=== PATIENT | female | born 1975 | race Two or more races ===

== ENCOUNTER 2021-09-17 21:59 | Emergency (ER) | payer MEDICAID, OTHER ==
[~2021-09-17] VITALS: Ht 167.6 cm; Wt 97.5 kg
[2021-09-17 22:50] LABS: Urine Bacteria NONE SEEN /hpf (None Seen); Urine Blood Negative /uL (Negative); Urine Specific Gravity 1.003 (1.001-1.035); Urine WBC <1 /hpf (0 - 5)
[2021-09-18] MEDS ORDERED: DOCUSATE SOD 100 MG CAP PO ONE (01:15)
[2021-09-18] MEDS ORDERED: LACTULOSE 20Gm/30ML SOLN PO ONE (01:15)
[2021-09-18] MEDS ORDERED: MAGNESIUM CITRATE SOLUTION 300 ML BTL PO ONE (01:15)
[2021-09-18 03:31] VITALS: BP 133/94
== END 2021-09-18 03:07 | disposition home or self-care (01) ==
LOC: ER 22:02
DX: K59.00 Constipation, unspecified (principal); Z32.02 Encounter for pregnancy test, result negative; Z90.49 Acquired absence of other specified parts of digestive tract
CPT/HCPCS: 74022; 81001; 81025